=== PATIENT | male | born 1960 | race African-American/Black ===

== ENCOUNTER 2018-12-01 09:50 | Emergency (ER) | payer BC, OTHER ==
[~2018-12-01] VITALS: Ht 182.9 cm; Wt 87.1 kg
[2018-12-01 09:59] VITALS: Ht 182.9 cm; Wt 87.1 kg
[2018-12-01 13:27] VITALS: BP 131/85
== END 2018-12-01 13:27 | disposition home or self-care (01) ==
LOC: ED 09:50
DX: S86.912A Strain of unspecified muscle(s) and tendon(s) at lower leg level, left leg, initial encounter (principal); S76.912A Strain of unspecified muscles, fascia and tendons at thigh level, left thigh, initial encounter; S76.911A Strain of unspecified muscles, fascia and tendons at thigh level, right thigh, initial encounter; S86.911A Strain of unspecified muscle(s) and tendon(s) at lower leg level, right leg, initial encounter; F17.210 Nicotine dependence, cigarettes, uncomplicated; W10.8XXA Fall (on) (from) other stairs and steps, initial encounter; Y93.89 Activity, other specified; Y92.098 Other place in other non-institutional residence as the place of occurrence of the external cause; Y99.8 Other external cause status
CPT/HCPCS: J1885